=== PATIENT | female | born 1970 | race Caucasian/White ===

== ENCOUNTER 2019-11-16 05:47 | Outpatient (RCR) | payer BC ==
[~2019-11-16] VITALS: Ht 165.1 cm; Wt 73.4 kg
[~2019-11-16 05:47] MED LIST: CETI10TA17 PO; DOCU100C37 PO; HYDR-34 PO; IBUP-1773 PO; SIME80TA16 PO
== END 2019-11-16 15:05 | disposition home or self-care (01) ==
LOC: PREOP 05:47
PROVIDERS: ATTEND Surgery
DX: Z01.818 Encounter for other preprocedural examination (principal); Z01.812 Encounter for preprocedural laboratory examination; K21.9 Gastro-esophageal reflux disease without esophagitis; Z20.828 Contact with and (suspected) exposure to other viral communicable diseases
CPT/HCPCS: 87635

== ENCOUNTER 2019-11-20 09:02 | Day surgery (SDC) | payer BC ==
[~2019-11-20] VITALS: Ht 165 cm; Wt 73.4 kg
[2019-11-20] MEDS ORDERED: LACTATED RINGERS 1,000 ML IV ONE (09:06)
[2019-11-20] MEDS ORDERED: LACTATED RINGERS 1,000 ML IV STA (09:10)
[2019-11-20 09:15] VITALS: BP 124/64
[2019-11-20] MEDS ORDERED: HURRICAINE EXT TUBE (BENZOCAINE) XX PRN (09:15)
--- NOTE | 2019-11-20 09:56 | Progress Note-Pre Operative ---
Pre-Operative Progress Note H&P Reviewed The H&P was reviewed, patient examined and no changes noted. Time Seen by Provider: 09:54 Date H&P Reviewed: Nov 20, 2019 Time H&P Reviewed: 09:52 Pre-Operative Diagnosis: Chronic Gastritis MING HINES DO Nov 20, 2019 09:56
[2019-11-20] MEDS ORDERED: PROPOFOL INJECTION 50 ML IV ONE (10:50)
[2019-11-20] MEDS ORDERED: MIDAZOLAM 2 MG/2 ML (VERSED) VIAL ONE (10:51)
[2019-11-20 11:00] VITALS: BP 90/51
[2019-11-20 11:05] VITALS: BP 88/54
--- NOTE | 2019-11-20 11:05 | Progress Note-Post Operative ---
Post-Operative Progess Note Surgeon (s)/Layout Artist (s) Surgeon MING HINES DO Layout Artist: none Pre-Operative Diagnosis Chronic Gastritis Post-Operative Diagnosis Esophagitis Gastritis Hiatal Hernia Procedure & Operative Findings Date of Procedure 11/20/19 Procedure Performed/Findings EGD with bx Anesthesia Type IV sedation by PLUG WIRER Estimated Blood Loss Estimated blood loss (mL): scant Specimens/Packing Specimens Removed antral bx body of stomach bx GE jxn bx x 2 MING HINES DO Nov 20, 2019 11:05
--- NOTE | 2019-11-20 11:06 | Endoscopy Discharge Instruct ---
Endo Procedure/Findings Findings 1.: Gastritis 2.: Hiatal Hernia 3.: Other Findings (esophagitis) Discharge Instructions - Activity: You might feel a little sleepy until tomorrow. This is due to the medicine you received to relax you. Until tomorrow, you should: NOT drive a car, operate machinery or power tools. NOT drink any alcoholic beverages. NOT make any important decisions or sign importortant papers. Do not return to work until tomorrow, unless otherwise instructed. Resume previous activities tomorrow. Diet: Start by taking liquids. If you tolerate liquids, advance to solid food. make appt for one week 1.: EGD in 1 year Notify Physician - If you experience excessive bleeding, unusual abdominal pain, fever, or chest pain, contact your doctor immediately. MING HINES DO Nov 20, 2019 11:06
[2019-11-20 11:10] VITALS: BP 93/56
[2019-11-20 11:15] VITALS: BP 93/55
[2019-11-20 11:42] VITALS: BP 110/68
--- NOTE | 2019-11-20 12:17 | Anesthesia-General Post-Op ---
MAC Patient Condition Mental Status/LOC: Same as Preop Cardiovascular: Satisfactory Nausea/Vomiting: Absent Respiratory: Satisfactory Pain: Controlled Complications: Absent Post Op Complications Complications None Follow Up Care/Instructions Patient Instructions None needed. Anesthesiology Discharge Order Discharge Order Patient is doing well, no complaints, stable vital signs, no apparent adverse anesthesia problems. No complications reported per nursing. MANUELITO BEGUM CRNA Nov 20, 2019 12:17
--- NOTE | 2019-11-21 05:11 | OPERATIVE REPORT ---
DATE OF SERVICE: PREOPERATIVE DIAGNOSES: Chronic gastritis, some epigastric pain. POSTOPERATIVE DIAGNOSES: Esophagitis, gastritis, hiatal hernia. PROCEDURE: EGD with biopsy. SURGEON: Santosh Bronson DO COBOL PROGRAMMER: None. ANESTHESIA: IV sedation by the RN PARALEGAL. SPECIMEN: Biopsy from the antrum, biopsy of body of stomach, biopsy from the GE junction x2. BLOOD LOSS: Scant. FLUIDS: Per anesthesia. POSTOPERATIVE CONDITION: Stable. INDICATION FOR PROCEDURE: The patient is a 49-year-old female, who has been having some epigastric pain and chronic gastritis, needed a workup. FINDINGS: The patient had esophagitis, some gastritis and a small hiatal hernia as well, she had a heterotopic spot of gastric mucosa in the esophagus. PROCEDURE NOTE: After informed consent was obtained, the patient was brought to the endoscopy suite, placed in bed in the left lateral decubitus position. She was administered IV sedation by the RN PARALEGAL, who then monitored her vitals the entire time, heart rate, blood pressure, pulse, and oxygen. Scope was inserted down the mouth through the esophagus into the stomach. On the way down, noted some changes of the GE junction, took a picture of the GE junction, then pushed into the stomach towards the antrum, took a picture of the antrum, pushing the duodenum. Duodenum looked fine. Pulled back and did a biopsy of the antrum and then pulled back, retroflexed the scope, saw a small hiatal hernia and did a biopsy of body of stomach, pulled the scope into the GE junction and did 2 biopsies here and then pushed the scope into the stomach, suctioned the air out and then pulled the scope up the esophagus and on the way up, noted a heterotopic implant of gastric mucosa, took a picture of this and then pulled the scope up the esophagus and out the mouth. The patient tolerated the procedure. She was recovered in endoscopy suite. Job ID: [id number] DocumentID: [id number] Dictated Date: 11/20/2019 16:37:53 Shrimp Boat Captain Date: 11/21/2019 05:10:05 Dictated By: SANTOSH BRONSON DO
== END 2019-11-20 11:45 | disposition home or self-care (01) ==
LOC: ENDO 09:02
PROVIDERS: ATTEND Surgery
DX: K29.50 Unspecified chronic gastritis without bleeding (principal); K44.9 Diaphragmatic hernia without obstruction or gangrene; A04.8 Other specified bacterial intestinal infections; K21.0 Gastro-esophageal reflux disease with esophagitis; E78.5 Hyperlipidemia, unspecified; Z88.1 Allergy status to other antibiotic agents; Z88.5 Allergy status to narcotic agent

== ENCOUNTER → 2019-12-21 | Outpatient (CLI) | payer BC | LOC: LAB 13:48 | PROVIDERS: ATTEND Surgery | DX: B96.81 Helicobacter pylori [H. pylori] as the cause of diseases classified elsewhere (principal); Z20.828 Contact with and (suspected) exposure to other viral communicable diseases ==

== ENCOUNTER → 2020-07-17 | Outpatient (CLI) | payer BC | LOC: CARD 09:30 | PROVIDERS: ATTEND Physician Assistant | DX: I10 Essential (primary) hypertension (principal); I34.0 Nonrheumatic mitral (valve) insufficiency | CPT/HCPCS: 93306 ==

== ENCOUNTER → 2021-01-17 | Outpatient (CLI) | payer SELFPAY ==
--- NOTE | 2021-01-23 13:48 | Diagnostic Imaging Report ---
INDICATION: Hyperlipidemia CT calcium study performed with noncontrast CT of the heart with calculation of calcium scoring. Dose reduction protocol was used. The raw data images demonstrate the aorta to be normal in caliber. There are no overt enlarged mediastinal nodes. Lung windows showed no focal abnormality. The entirety of the lung field was not included on the study. There is no significant calcium over the coronary artery territories. Calcium score was 0 in all territories. IMPRESSION: CT cardiac calcium score was 0, no significant coronary calcification. No incidental findings seen on the raw data images. Dictated by: Dictated on workstation # [id number]
== END ==
LOC: RAD FS 16:00
PROVIDERS: ATTEND Family Medicine
DX: E78.2 Mixed hyperlipidemia (principal)
CPT/HCPCS: 75571

== ENCOUNTER → 2021-01-30 | Outpatient (CLI) | payer BC ==
--- NOTE | 2021-01-30 10:27 | Diagnostic Imaging Report ---
PROCEDURE: US Gallbladder. TECHNIQUE: Multiple real-time grayscale images were obtained over the right upper quadrant in various projections. INDICATION: Epigastric pain. Liver is normal in size at 13 cm. No discrete liver masses identified. Portal vein is patent and shows normal direction of flow. Gallbladder is without stones or sludge. No wall thickening or biliary ductal dilatation is seen. Pancreas unremarkable. Aorta is nonaneurysmal. IVC is patent. Right kidneys without calculi or hydronephrosis. There is no ascites. IMPRESSION: No evidence of cholelithiasis or acute cholecystitis. Dictated by: Dictated on workstation # [id number]
== END ==
LOC: RAD 08:30
PROVIDERS: ATTEND Surgery
DX: R10.13 Epigastric pain (principal)
CPT/HCPCS: 76705

== ENCOUNTER 2021-02-06 05:28 | Outpatient (RCR) | payer BC ==
[~2021-02-06] VITALS: Ht 165 cm; Wt 67.3 kg
== END 2021-02-10 10:30 | disposition home or self-care (01) ==
LOC: PREOP 05:28
PROVIDERS: ATTEND Surgery
DX: Z01.818 Encounter for other preprocedural examination (principal); K29.50 Unspecified chronic gastritis without bleeding; Z20.822 Contact with and (suspected) exposure to COVID-19
CPT/HCPCS: 87635

== ENCOUNTER → 2021-02-07 | Outpatient (CLI) | payer BC ==
[~2021-02-07] MED LIST changes: +CATHETER FLUSH 10 ML SYR IV PRN
--- NOTE | 2021-02-07 12:41 | Diagnostic Imaging Report ---
INDICATION: Right upper quadrant abdominal pain. COMPARISON: None. RADIOPHARMACEUTICAL: 4.4 mCi technetium 99m Choletec IV. FINDINGS: Tracer activity is seen in the liver. Bile ducts, gallbladder, and bowel are normal. The ejection fraction is 58%. IMPRESSION: Negative HIDA scan. Dictated by: Dictated on workstation # [id number]
== END ==
LOC: CARD 10:00
PROVIDERS: ATTEND Surgery
DX: R10.13 Epigastric pain (principal)
CPT/HCPCS: 78227; A9537

== ENCOUNTER 2021-02-10 10:19 | Day surgery (SDC) | payer BC ==
[~2021-02-10] VITALS: Ht 165 cm; Wt 67.3 kg
[2021-02-10] VITALS (7 sets, daily range): BP systolic 70–707; BP diastolic 34–384
[~2021-02-10 10:19] MED LIST changes: -CATHETER FLUSH 10 ML SYR IV PRN
[2021-02-10] MEDS ORDERED: LACTATED RINGERS 1,000 ML IV STA (10:57)
[2021-02-10] MEDS ORDERED: HURRICAINE EXT TUBE (BENZOCAINE) XX PRN (11:00)
[2021-02-10] MEDS ORDERED: LACTATED RINGERS 1,000 ML IV ONE (11:08)
--- NOTE | 2021-02-10 11:45 | Progress Note-Pre Operative ---
Pre-Operative Progress Note H&P Reviewed The H&P was reviewed, patient examined and no changes noted. Time Seen by Provider: 11:42 Date H&P Reviewed: Feb 10, 2021 Time H&P Reviewed: 11:42 Pre-Operative Diagnosis: RUQ pain, chronic Gastritis MING HINES DO Feb 10, 2021 11:45
[2021-02-10] MEDS ORDERED: MIDAZOLAM 2 MG/2 ML (VERSED) VIAL ONE (11:46)
[2021-02-10] MEDS ORDERED: PROPOFOL INJECTION 50 ML IV ONE (11:47)
--- NOTE | 2021-02-10 12:07 | Progress Note-Post Operative ---
Post-Operative Progess Note Surgeon (s)/Tunnel Elastic Operator Chainstitch (s) Surgeon MING HINES DO Tunnel Elastic Operator Chainstitch: none Pre-Operative Diagnosis RUQ pain, chronic Gastritis Post-Operative Diagnosis Gastritis Small hiatal hernia Esophagitis Procedure & Operative Findings Date of Procedure 02/10/21 Procedure Performed/Findings EGD with bx PROCEDURE NOTE: After informed consent was obtained, the patient was brought to the endoscopy suite, placed in bed in left lateral decubitus position. She was administered IV sedation by the REIMBURSEMENT REP who then monitored vitals the entire time, heart rate, blood pressure and pulse ox and the scope was inserted down the mouth through the esophagus into the stomach. On the way down, noted some mild esophagitis, took a picture, pushed into the stomach, pushed past the antrum into the duodenum. Duodenum looked good. Pulled back and did a biopsy of antrum, then retroflexed the scope, saw a small hiatal hernia, took a picture of this and then did a biopsy of the body of the stomach. Pulled the scope into the GE junction and then did a biopsy of the GE junction. Pushed the scope back into the stomach, suctioned all the air out of the stomach. At this point pulled the scope up the esophagus and out the mouth. The patient tolerated the procedure, and she recovered in endoscopy suite. Anesthesia Type IV sedation by REIMBURSEMENT REP Estimated Blood Loss Estimated blood loss (mL): scant Specimens/Packing Specimens Removed antral bx Body of stomach bx GE jxn bx MING HINES DO Feb 10, 2021 12:07
--- NOTE | 2021-02-10 12:08 | Endoscopy Discharge Instruct ---
Endo Procedure/Findings Findings 1.: Gastritis 2.: Hiatal Hernia Discharge Instructions - Activity: You might feel a little sleepy until tomorrow. This is due to the medicine you received to relax you. Until tomorrow, you should: NOT drive a car, operate machinery or power tools. NOT drink any alcoholic beverages. NOT make any important decisions or sign importortant papers. Do not return to work until tomorrow, unless otherwise instructed. Resume previous activities tomorrow. Diet: Start by taking liquids. If you tolerate liquids, advance to solid food. 1.: EGD in 3 years Notify Physician - If you experience excessive bleeding, unusual abdominal pain, fever, or chest pain, contact your doctor immediately. MING HINES DO Feb 10, 2021 12:08
--- NOTE | 2021-02-10 12:41 | Anesthesia-General Post-Op ---
MAC Patient Condition Mental Status/LOC: Same as Preop Cardiovascular: Satisfactory Nausea/Vomiting: Absent Respiratory: Satisfactory Pain: Controlled Complications: Absent Post Op Complications Complications None Follow Up Care/Instructions Patient Instructions None needed. Anesthesiology Discharge Order Discharge Order Patient is doing well, no complaints, stable vital signs, no apparent adverse anesthesia problems. No complications reported per nursing. HERMES GONZALEZ CRNA Feb 10, 2021 12:41
== END 2021-02-10 12:56 | disposition home or self-care (01) ==
LOC: ENDO 10:19
PROVIDERS: ATTEND Surgery
DX: K29.50 Unspecified chronic gastritis without bleeding (principal); K21.00 Gastro-esophageal reflux disease with esophagitis, without bleeding; E78.5 Hyperlipidemia, unspecified; E78.00 Pure hypercholesterolemia, unspecified; I38 Endocarditis, valve unspecified; Z88.5 Allergy status to narcotic agent; K44.9 Diaphragmatic hernia without obstruction or gangrene; K31.9 Disease of stomach and duodenum, unspecified

== ENCOUNTER → 2021-03-24 | Outpatient (CLI) | payer BC ==
--- NOTE | 2021-03-25 12:14 | Diagnostic Imaging Report ---
Indication: Routine screening. Comparison is made with prior mammogram from 10/23/2015 and 08/21/2014. 2-D and 3-D bilateral screening mammography was performed with CAD. Both breasts are heterogeneously dense, limiting the sensitivity of mammography. The parenchymal pattern is stable. No mass or malignant appearing microcalcifications are seen. Axillae are unremarkable. IMPRESSION: BI-RADS Category 1 No mammographic features suspicious for malignancy are identified. ACR BI-RADS Category 1: Negative. Result letter will be mailed to the patient. Note: At least 10% of breast cancer is not imaged by mammography. Dictated by: Dictated on workstation # [id number]
== END ==
LOC: RAD 15:36
PROVIDERS: ATTEND Obstetrics & Gynecology
DX: Z12.31 Encounter for screening mammogram for malignant neoplasm of breast (principal)
CPT/HCPCS: 77063; 77067

== ENCOUNTER 2021-06-23 19:17 | Emergency (ER) | payer BC ==
[~2021-06-23] VITALS: Ht 165.1 cm; Wt 63.5 kg
[2021-06-23 19:35] VITALS: BP 124/74
[2021-06-23] MEDS ORDERED: ONDANSETRON 4 MG/2 ML (SDV) Z0FRAN IVP ONE (20:30)
[2021-06-23] MEDS ORDERED: HYDROcodone/APAP 5 MG/325 MG (LORTAB) TAB PO ONE (20:30)
[2021-06-23] MEDS ORDERED: NS IV 1000 ML 1,000 ML IV SCH (21:00)
[2021-06-23 21:01] LABS: BASOPHILS % (AUTO) 0 % (0-10); EOSINOPHILS % (AUTO) 0 % (0-10); HEMATOCRIT 37 % (35-52); HEMOGLOBIN 12.6 g/dL (11.5-16.0); LYMPHOCYTES # (AUTO) 0.4 10^3/uL (1.0-4.0); LYMPHOCYTES % (AUTO) 5 % (12-44); MEAN CORPUSCULAR HEMOGLOBIN 29 pg (25-34); MEAN CORPUSCULAR HGB CONC 34 g/dL (32-36); MEAN CORPUSCULAR VOLUME 85 fL (80-99); MEAN PLATELET VOLUME 10.2 fL (9.0-12.2); MONOCYTES # (AUTO) 0.6 10^3/uL (0.0-1.0); MONOCYTES % (AUTO) 8 % (0-12); NEUTROPHILS # (AUTO) 6.7 10^3/uL (1.8-7.8); NEUTROPHILS % (AUTO) 86 % (42-75); PLATELET COUNT 188 10^3/uL (130-400); WHITE BLOOD COUNT 7.7 10^3/uL (4.3-11.0)
[2021-06-23 21:20] LABS: LYMPHOCYTES % (MANUAL) 5 %; MONOCYTES % (MANUAL) 5 %; NEUTROPHILS % (MANUAL) 90 %; RBC MORPH NORMAL
[2021-06-23 21:21] LABS: ALBUMIN 4.3 GM/DL (3.2-4.5); BILIRUBIN,TOTAL 0.3 MG/DL (0.1-1.0); CALCIUM 8.8 MG/DL (8.5-10.1); CREATININE SERUM 0.73 MG/DL (0.60-1.30); POTASSIUM 3.5 MMOL/L (3.6-5.0); TOTAL PROTEIN 7.7 GM/DL (6.4-8.2)
--- NOTE | 2021-06-23 21:58 | ED General ---
General Chief Complaint: Head/Cervical Problems Stated Complaint: FEVERS, H/A, CHILL Nursing Triage Note: Pt arrives via POV from home for c/o headache x1 week; also reports feeling feverish at home. Pt reports known covid positive contacts at home. Source of Information: Patient Exam Limitations: No Limitations History of Present Illness Date Seen by Provider: Jun 23, 2021 Allergies and Home Medications Allergies Coded Allergies: morphine (Verified Allergy, Intermediate, 01/01/15) cephalexin (Verified Allergy, Unknown, yeast infection, 11/14/19) Past Lodhfim-Zmbedn-Dkrmcx Hx Patient Social History Tobacco Use?: No Use of E-Cig and/or Vaping dev: No Substance use?: No Alcohol Use?: No Pt feels they are or have been: No Immunizations Up To Date Influenza Vaccine Up-to-Date: No; Not Current Seasonal Allergies Seasonal Allergies: Yes Past Medical History Surgeries: Yes Hysterectomy, Tubal Ligation Respiratory: No Cardiac: Yes High Cholesterol, Valvular Heart Disease Neurological: No Female Reproductive Disorders: Menstrual Problems, Ovarian Cyst Sexually Transmitted Disease: No HIV/AIDS: No Genitourinary: No Gastrointestinal: Yes Gastroesophageal Reflux, Chronic Constipation Musculoskeletal: Yes (RIGHT ARM-HAIRLINE FX) Fractures Endocrine: No HEENT: No Loss of Vision: Bilateral Hearing Impairment: Denies Cancer: No Psychosocial: No Integumentary: No Blood Disorders: Yes (HX OF ANEMIA DURING ) Adverse Reaction/Blood Tranf: No Family Medical History Diabetes mellitus 19 MOTHER Hypertension 19 MOTHER Physical Exam Vital Signs Vital Signs - First Documented 06/23/21 19:35 Temp 38.0 Pulse 90 Resp 18 B/P (MAP) 124/74 (91) Pulse Ox 99 O2 Delivery Room Air Capillary Refill : Less Than 3 Seconds Height, Weight, BMI Height: 5'6.00" Weight: 130lbs. oz. 58.272291lc; 23.00 BMI Method: Progress/Results/Core Measures Suspected Sepsis SIRS Temperature: Pulse: 90 Respiratory Rate: 18 Laboratory Tests 06/23/21 20:50: White Blood Count 7.7 Blood Pressure 124 /74 Mean: 91 Laboratory Tests 06/23/21 20:50: Creatinine 0.73, Platelet Count 188, Total Bilirubin 0.3 Results/Orders Lab Results Laboratory Tests Test 06/23/21 19:40 06/23/21 20:50 Range/Units Influenza Type A Antigen NEGATIVE NEGATIVE Influenza Type B Antigen NEGATIVE NEGATIVE White Blood Count 7.7 4.3-11.0 10^3/uL Red Blood Count 4.38 3.80-5.11 10^6/uL Hemoglobin 12.6 11.5-16.0 g/dL Hematocrit 37 35-52 % Mean Corpuscular Volume 85 80-99 fL Mean Corpuscular Hemoglobin 29 25-34 pg Mean Corpuscular Hemoglobin Concent 34 32-36 g/dL Red Cell Distribution Width 12.8 10.0-14.5 % Platelet Count 188 130-400 10^3/uL Mean Platelet Volume 10.2 9.0-12.2 fL Immature Granulocyte % (Auto) 0 % Neutrophils (%) (Auto) 86 H 42-75 % Lymphocytes (%) (Auto) 5 L 12-44 % Monocytes (%) (Auto) 8 0-12 % Eosinophils (%) (Auto) 0 0-10 % Basophils (%) (Auto) 0 0-10 % Neutrophils # (Auto) 6.7 1.8-7.8 10^3/uL Lymphocytes # (Auto) 0.4 L 1.0-4.0 10^3/uL Monocytes # (Auto) 0.6 0.0-1.0 10^3/uL Eosinophils # (Auto) 0.0 0.0-0.3 10^3/uL Basophils # (Auto) 0.0 0.0-0.1 10^3/uL Immature Granulocyte # (Auto) 0.0 0.0-0.1 10^3/uL Neutrophils % (Manual) 90 % Lymphocytes % (Manual) 5 % Monocytes % (Manual) 5 % Blood Morphology Comment NORMAL Sodium Level 138 135-145 MMOL/L Potassium Level 3.5 L 3.6-5.0 MMOL/L Chloride Level 106 98-107 MMOL/L Carbon Dioxide Level 20 L 21-32 MMOL/L Anion Gap 12 5-14 MMOL/L Blood Urea Nitrogen 12 7-18 MG/DL Creatinine 0.73 0.60-1.30 MG/DL Estimat Glomerular Filtration Rate 100 BUN/Creatinine Ratio 16 Glucose Level 95 70-105 MG/DL Calcium Level 8.8 8.5-10.1 MG/DL Corrected Calcium 8.6 8.5-10.1 MG/DL Total Bilirubin 0.3 0.1-1.0 MG/DL Aspartate Amino Transf (AST/SGOT) 22 5-34 U/L Alanine Aminotransferase (ALT/SGPT) 37 0-55 U/L Alkaline Phosphatase 63 40-136 U/L Total Protein 7.7 6.4-8.2 GM/DL Albumin 4.3 3.2-4.5 GM/DL My Orders Orders - MARELY OCONNELL FLIGHT ENGINEER HELICOPTER Cbc With Automated Diff (06/23/21 20:30) Comprehensive Metabolic Panel (06/23/21 20:30) Influenza A & B Antigens (06/23/21 20:30) Coronavirus Sars-Cov-2 So 2019 (06/23/21 20:30) Ed Iv/Invasive Line Start (06/23/21 20:30) Ondansetron Injection (Zofran Injectio (06/23/21 20:30) Hydrocodone/Apap 5/325 Tablet (Lortab 5 (06/23/21 20:30) Ns Iv 1000 Ml (Sodium Chloride 0.9%) (06/23/21 21:00) Manual Differential (06/23/21 20:50) Medications Given in ED Current Medications Medications Dose Ordered Sig/Jonah Route Start Time Stop Time Status Last Admin Dose Admin Acetaminophen/ Hydrocodone Bitart 1 ea ONCE ONCE PO 06/23/21 20:30 06/23/21 20:33 DC 06/23/21 20:55 1 EA Ondansetron HCl 4 mg ONCE ONCE IVP 06/23/21 20:30 06/23/21 20:33 DC 06/23/21 20:55 4 MG Vital Signs/I&O 06/23/21 19:35 Temp 38.0 Pulse 90 Resp 18 B/P (MAP) 124/74 (91) Pulse Ox 99 O2 Delivery Room Air Capillary Refill : Less Than 3 Seconds Blood Pressure Mean: 91 Departure Impression Primary Impression: Suspected 2019 novel coronavirus infection Disposition: 01 HOME, SELF-CARE Condition: Improved Departure-Patient Inst. Decision time for Depature: 21:56 Referrals: SELFBIN MD (PCP/Family) Primary Care Physician Patient Instructions: COVID-19 Vaccines, COVID-19 (DC) Add. Discharge Instructions: Plan: 1. May take Hydrocodone 5/325mg by mouth for severe pain. 2. Take Zofran 4mg by mouth every 6 hours as needed for nausea/vomiting. 3. Drink plenty of fluids to stay hydrated. 4. Follow up with Masha Madrid if your COVID test returns positive or your symptoms persist. 5. Return for any new, concerning, or worsening symptoms. All discharge instructions reviewed with patient and/or family. Voiced understanding. MARELY OCONNELL FLIGHT ENGINEER HELICOPTER Jun 23, 2021 21:58
[2021-06-23] MEDS ORDERED: RX-ONDANSETRON 4 MG ODT (ZOFRAN) PPK #4 PO STA (22:25)
[2021-06-24] MEDS ORDERED: ACHD5005 PO (11:30)
[2021-06-24] MEDS ORDERED: ONDA8TAB13 PO (11:30)
== END 2021-06-23 22:33 | disposition home or self-care (01) ==
LOC: EDUNIT# 19:17 → ER 19:22
DX: U07.1 COVID-19 (principal)
CPT/HCPCS: 36415; 80053; 85007; 85027; 87635; 87804

== ENCOUNTER → 2022-06-01 | Outpatient (CLI) | payer BC ==
[~2022-06-01] MED LIST changes: +ACHD5005 PO; +ONDA8TAB13 PO
--- NOTE | 2022-06-01 12:27 | Diagnostic Imaging Report ---
INDICATION: Routine screening. COMPARISON: 03/24/2021 and 10/23/2015. TECHNIQUE: 2D and 3D bilateral screening mammography was performed with CAD. FINDINGS: Both breasts are heterogeneously dense, limiting the sensitivity of mammography. The nodular densities in the medial right breast are stable. There is a new nodule in the inferior left breast which appears to be fairly well-circumscribed. This is approximately 4 cm from the nipple. There are benign calcifications. No malignant-appearing microcalcifications are seen. IMPRESSION: Circumscribed nodule in the slightly inferior left breast 4 cm from the nipple. Further evaluation of this area with ultrasound is recommended. ACR BI-RADS Category 0: Incomplete. (Needs additional imaging evaluation). Result letter will be mailed to the patient. Note: At least 10% of breast cancer is not imaged by mammography. Dictated by: Dictated on workstation # [id number]
== END ==
LOC: RAD 09:02
PROVIDERS: ATTEND Family Medicine
DX: Z12.31 Encounter for screening mammogram for malignant neoplasm of breast (principal); N63.20 Unspecified lump in the left breast, unspecified quadrant
CPT/HCPCS: 77063; 77067

== ENCOUNTER → 2022-06-05 | Outpatient (CLI) | payer BC ==
--- NOTE | 2022-06-05 13:11 | Diagnostic Imaging Report ---
INDICATION: Left breast density. CORRELATION is made with screening mammogram from 06/01/2022. Sonographic interrogation of the lower inner left breast was performed. There is a simple cyst measuring 4 mm x 4 mm x 5 mm at the 7:00 location, 4 cm from the nipple. This corresponds to the mammographic density. No internal vascularity is seen. No solid masses are detected. IMPRESSION: BI-RADS Category 2 Simple cyst at the 7:00 location of the left breast, 4 cm from the nipple, corresponding to the mammographic density. The patient may return to routine annual screening mammography. ACR BI-RADS Category 2: Benign findings. Result letter will be mailed to the patient. Note: At least 10% of breast cancer is not imaged by mammography. Dictated by: Dictated on workstation # [id number]
== END ==
LOC: RAD 12:45
PROVIDERS: ATTEND Family Medicine
DX: N60.02 Solitary cyst of left breast (principal)

== ENCOUNTER 2022-07-01 05:42 | Outpatient (CLI) | payer BC ==
[~2022-07-01] VITALS: Ht 165.1 cm; Wt 72.0 kg
== END 2022-07-01 11:27 | disposition home or self-care (01) ==
LOC: PREOP 05:42
PROVIDERS: ATTEND Surgery
DX: Z01.818 Encounter for other preprocedural examination (principal)

== ENCOUNTER 2022-07-13 07:54 | Day surgery (SDC) | payer BC ==
[~2022-07-13] VITALS: Ht 165.1 cm; Wt 72.0 kg
[2022-07-13] MEDS ORDERED: LACTATED RINGERS 1,000 ML IV STA (07:58)
[2022-07-13] MEDS ORDERED: HURRICAINE EXT TUBE (BENZOCAINE) XX PRN (08:00)
[2022-07-13 08:13] VITALS: BP 114/68
--- NOTE | 2022-07-13 08:24 | Progress Note-Pre Operative ---
Pre-Operative Progress Note Date of Available H&P: Jun 23, 2022 Date H&P Reviewed: Jul 13, 2022 Time H&P Reviewed: 08:19 History & Physical: H&P Reviewed, Patient Examed, No changes noted Pre-Operative Diagnosis: Chronic Gastritis, Screening MING HINES DO Jul 13, 2022 08:24
[2022-07-13] MEDS ORDERED: PROPOFOL INJECTION 50 ML IV ONE (08:57)
[2022-07-13] MEDS ORDERED: MIDAZOLAM 2 MG/2 ML (VERSED) VIAL ONE (08:57)
[2022-07-13 09:30] VITALS: BP 116/66
[2022-07-13 09:35] VITALS: BP 105/64
--- NOTE | 2022-07-13 09:45 | Endoscopy Discharge Instruct ---
Endo Procedure/Findings Findings 1.: Gastritis 2.: Hiatal Hernia 3.: Polyp 4.: Internal Hemorrhoids Discharge Instructions - Activity: You might feel a little sleepy until tomorrow. This is due to the medicine you received to relax you. Until tomorrow, you should: NOT drive a car, operate machinery or power tools. NOT drink any alcoholic beverages. NOT make any important decisions or sign importortant papers. Do not return to work until tomorrow, unless otherwise instructed. Resume previous activities tomorrow. Diet: Start by taking liquids. If you tolerate liquids, advance to solid food. 1.: EGD in 3 years 2.: Colonoscopy in 1 year Notify Physician - If you experience excessive bleeding, unusual abdominal pain, fever, or chest pain, contact your doctor immediately. MING HINES DO Jul 13, 2022 09:45
--- NOTE | 2022-07-13 09:45 | Progress Note-Post Operative ---
Post-Operative Progess Note Surgeon (s)/Service Desk Associate (s) Surgeon MING HINES DO Service Desk Associate: Laurel Haines, MSIII Pre-Operative Diagnosis Chronic Gastritis, Screening Post-Operative Diagnosis Gastritis Hiatal Hernia Polyp Int hemorrhoids poor prep Procedure & Operative Findings Date of Procedure 07/13/22 Procedure Performed/Findings PROCEDURE NOTE: After informed consent was obtained, the patient was brought to the endoscopy suite, placed in bed in left lateral decubitus position. She was administered IV sedation by the ARC WELDER APPRENTICE who then monitored vitals the entire time, heart rate, blood pressure and pulse ox and the scope was inserted down the mouth through the esophagus into the stomach. On the way down, noted some mild esophagitis, took a picture, pushed into the stomach, pushed past the antrum into the duodenum. Duodenum looked good. Pulled back and did a biopsy of antrum, then retroflexed the scope, saw very small hiatal hernia, took a picture of this and then pulled the scope into the GE junction, took another picture of the hiatal hernia and then did a biopsy of the GE junction. Pushed the scope back into the stomach, suctioned all the air out of the stomach. At this point pulled the scope up the esophagus and out the mouth. Switched camera, switched gloves and went down below to start the colonoscopy. Pushed all the way to about 150 cm and pushed into the cecum, took a picture of appendiceal orifice and noted the ileocecal valve. Then slowly withdrew the scope insufflating to look circumferentially at the lui starting in the cecum, up the ascending colon to the hepatic flexure, then down the transverse colon, splenic flexure, into the descending colon down in the sigmoid and then into the rectal vault and retroflexed the scope. Took picture of the internal hemorrhoids. There was a lot of retained fecal material mostly left side of the colon, but some throughout. Also, in the ascending colon there was a flat polyp that I removed with cold biopsy. The patient tolerated the procedure and she recovered in the endoscopy suite. Recommended for repeat colonoscopy in 1 year because of the poor prep. Anesthesia Type IV sedation by ARC WELDER APPRENTICE Estimated Blood Loss Estimated blood loss (mL): scant Specimens/Packing Specimens Removed antral bx GE jxn bx Asc colon polyp MING HINES DO Jul 13, 2022 09:45
[2022-07-13 10:00] VITALS: BP 110/64
[2022-07-13 10:04] VITALS: BP 110/64
--- NOTE | 2022-07-13 12:14 | Anesthesia-General Post-Op ---
MAC Patient Condition Mental Status/LOC: Same as Preop Cardiovascular: Satisfactory Nausea/Vomiting: Absent Respiratory: Satisfactory Pain: Controlled Complications: Absent Post Op Complications Complications None Follow Up Care/Instructions Patient Instructions None needed. Anesthesiology Discharge Order Discharge Order Patient is doing well, no complaints, stable vital signs, no apparent adverse anesthesia problems. No complications reported per nursing. DANIKA NIELSON CRNA Jul 13, 2022 12:14
== END 2022-07-13 10:06 | disposition home or self-care (01) ==
LOC: ENDO 07:54
PROVIDERS: ATTEND Surgery
DX: Z12.11 Encounter for screening for malignant neoplasm of colon (principal); D12.2 Benign neoplasm of ascending colon; K29.50 Unspecified chronic gastritis without bleeding; K44.9 Diaphragmatic hernia without obstruction or gangrene; K21.00 Gastro-esophageal reflux disease with esophagitis, without bleeding; K64.8 Other hemorrhoids; Z28.310 Unvaccinated for COVID-19

== ENCOUNTER → 2022-08-31 | Outpatient (CLI) | payer BC | LOC: RAD 09:47 | PROVIDERS: ATTEND Family Medicine | DX: M54.12 Radiculopathy, cervical region (principal) ==

== ENCOUNTER → 2022-09-02 | Outpatient (CLI) | payer BC ==
[2022-09-02 10:13] VITALS: BP 134/83
--- NOTE | 2022-09-02 16:03 | Cardiology Stress Test Report ---
Stress Test Report Date of Procedure/Referring: Date of Procedure: Sep 02, 2022 PCP Scottie Albert MD Admitting Physician Admitting Physician: Attending Physician: Geena Whitfield Baseline Heart Rate: 74 Baseline Blood Pressure: Blood Pressure Systolic: 134 Blood Pressure Diastolic: 83 Baseline EKG: Baseline EKG: NSR Summary/Conclusion: Summary: In summary, the patient started exercising with a baseline heart rate, blood pressure and EKG mentioned above Patient was able to exercise for a total of 7 minutes on Franklyn protocol, METs 8.5 Maximum heart rate 150 Maximum blood pressure 178/77 Stress EKG, Minimal nondiagnostic changes Recovery EKG , Return to baseline Conclusion: 1. Good exercise tolerance for a total of 7 minutes on Franklyn protocol, 8.5 METs, achieving 88 percent of maximum expected heart rate 2. Minimal nondiagnostic EKG changes with exercise returned to baseline during recovery 3. Occasional PVCs noted during test otherwise no arrhythmia noted. Copy Copies To 1: SCOTTIE ALBERT MD, BASHAR J MD Sep 02, 2022 16:03
== END ==
LOC: CARD 10:00
PROVIDERS: ATTEND Physician Assistant
DX: R07.9 Chest pain, unspecified (principal)
CPT/HCPCS: 93017